=== PATIENT | female | born 1985 | race African-American/Black ===

== ENCOUNTER 2019-04-19 08:44 | Emergency (ER) | payer OTHER ==
[2019-04-19 09:27] LABS: BASOPHILS % (AUTO) 0.3 %; EOSINOPHILS % (AUTO) 0.3 %; HGB - HEMOGLOBIN 11.6 g/dL (12.0-16.0); LYMPHOCYTES # (AUTO) 2.7 10^3/uL (1.5-3.5); LYMPHOCYTES % (AUTO) 42.5 %; MEAN CORPUSCULAR HEMOGLOBIN 28.7 pg (27.0-31.0); MEAN CORPUSCULAR HGB CONC 33.9 g/dL (32.0-36.0); MEAN CORPUSCULAR VOLUME 84.7 fL (81.0-99.0); MEAN PLATELET VOLUME 9.4 fL (7.9-10.8); MONOCYTES # (AUTO) 0.4 10^3/uL (0.0-1.0); NEUTROPHILS # (AUTO) 3.2 10^3/uL (1.5-6.6); NEUTROPHILS % (AUTO) 50.6 %; PLT - PLATELET COUNT 294 10^3/uL (130-450); RED BLOOD COUNT 4.04 10^6/uL (4.20-5.40); RED CELL DISTRIBUTION WIDTH 13.6 % (12.0-15.0); WHITE BLOOD COUNT 6.4 x10^3/uL (4.8-10.8)
[2019-04-19] MEDS ORDERED: SODIUM CHLORIDE 0.9% 1,000 ML IV ONE (09:28)
--- NOTE | 2019-04-19 09:30 | ED Physician Documentation ---
PD HPI DYSPNEA - Stated complaint Stated Complaint: SOA/NUMB HANDS - Chief complaint Chief Complaint: Cardiac - History obtained from History obtained from: Patient - History of Present Illness Timing - onset: Today Timing - onset during: Light activity Timing - duration: Minutes Timing - details: Abrupt onset, Now resolved Inciting event(s): Other (just got out of the shower) Improved by: Rest Associated symptoms: Anxiety. 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 She has recently been into see her doctor about hair loss fatigue a rash on her body constipation and irregularity to her menstrual periods. She has pending blood work and is expecting follow-up at the end of this week. She is concerned about a thyroid disorder. She states that she was feeling otherwise well this morning and this episode took her by surprise she is come to the emergency department. Review of Systems Constitutional: reports: Fatigue, Sweats. denies: Fever, Chills Eyes: denies: Decreased vision Ears: denies: Ear pain Nose: denies: Rhinorrhea / runny nose, Congestion Throat: denies: Sore throat Cardiac: denies: Chest pain / pressure, Palpitations Respiratory: reports: Dyspnea. denies: Cough, Wheezing GI: reports: Abdominal Pain, Constipation. denies: Nausea, Vomiting, Diarrhea : denies: Dysuria, Frequency Skin: reports: Rash Musculoskeletal: denies: Neck pain, Back pain, Extremity pain Neurologic: reports: Generalized weakness. denies: Focal weakness, Numbness PD PAST MEDICAL HISTORY - Present Medications Home Medications: Ambulatory Orders Medication Instructions Recorded Confirmed Lorazepam [Ativan] 1 mg PO Q6HR PRN #15 tablet 04/19/19 - Allergies Allergies/Adverse Reactions: Allergies Allergy/AdvReac Type Severity Reaction Status Date / Time NSAIDS (Non-Steroidal Allergy Anaphylaxis Verified 04/19/19 08:53 Anti-Inflamma peanut Allergy Anaphylaxis Verified 04/19/19 08:53 PD ED PE NORMAL - Vitals Vital signs reviewed: Yes (tachy ) - General General: Alert and oriented X 3, No acute distress, Well developed/nourished - HEENT HEENT: Atraumatic, PERRL, EOMI, Ears normal, Pharynx benign, Dentition benign, Other (dry mucous membranes ) - Neck Neck: Supple, no meningeal sign, No bony TTP - Cardiac Cardiac: No murmur, Other (tachy to 110) - Respiratory Respiratory: No respiratory distress, Clear bilaterally - Abdomen Abdomen: Normal bowel sounds, Soft, Non tender, Non distended, No organomegaly - Back Back: No CVA TTP, No spinal TTP - Derm Derm: Normal color, Warm and dry, No rash - Extremities Extremities: No deformity, No edema - Neuro Neuro: Alert and oriented X 3, 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, No motor deficit, No sensory deficit, Normal speech Eye Opening: Spontaneous Motor: Obeys Commands Verbal: Oriented GCS Score: 15 - Psych Psych: Normal mood, Normal affect Results - Vitals Vitals: Vital Signs - 24 hr 04/19/19 04/19/19 04/19/19 08:49 09:30 10:00 Temperature 36.4 C L Heart Rate 128 H 81 99 Respiratory 16 18 17 Rate Blood Pressure 145/86 H 128/77 134/75 H O2 Saturation 100 99 99 04/19/19 04/19/19 04/19/19 10:30 11:00 11:18 Temperature Heart Rate 84 84 145 H Respiratory 20 19 Rate Blood Pressure 128/81 H 148/91 H O2 Saturation 100 100 04/19/19 04/19/19 04/19/19 11:30 12:00 12:09 Temperature Heart Rate 97 108 H 135 H Respiratory 18 18 Rate Blood Pressure 131/84 H 147/69 H O2 Saturation 100 98 04/19/19 04/19/19 04/19/19 12:30 13:00 13:30 Temperature Heart Rate 85 82 76 Respiratory 20 23 13 Rate Blood Pressure 137/74 H 136/84 H 123/92 H O2 Saturation 99 100 100 04/19/19 04/19/19 14:00 14:30 Temperature Heart Rate 89 90 Respiratory 18 12 Rate Blood Pressure 139/77 H 128/74 O2 Saturation 100 100 Oxygen O2 Source Room air - EKG (time done) 0902 Rate: Rate (enter#) (103) Rhythm: Sinus tachycardia, LAE Compare to prior EKG: Old EKG unavailable Computer interpretation: Agree with computer - Labs Labs: Laboratory Tests 04/19/19 04/19/19 04/19/19 09:10 09:11 09:11 WBC 6.4 RBC 4.04 L Hgb 11.6 L Hct 34.2 L MCV 84.7 MCH 28.7 MCHC 33.9 RDW 13.6 Plt Count 294 MPV 9.4 Neut # (Auto) 3.2 Lymph # (Auto) 2.7 [place] # (Auto) 0.4 Eos # (Auto) 0.0 Baso # (Auto) 0.0 Absolute Nucleated RBC 0.00 Nucleated RBC % 0.0 D-Dimer Sodium 137 Potassium 3.5 Chloride 103 Carbon Dioxide 22 Anion Gap 12.0 BUN 17 Creatinine 0.9 Estimated GFR (MDRD) 87 L Glucose 107 H Calcium 9.2 Total Bilirubin 0.5 AST 23 ALT 18 Alkaline Phosphatase 96 Troponin I High Sens Total Protein 8.4 H Albumin 4.2 Globulin 4.2 Albumin/Globulin Ratio 1.0 Lipase 29 TSH 1.95 Urine Color Urine Clarity Urine pH Ur Specific [place] Urine Protein Urine Glucose (UA) Urine Ketones Urine Occult Blood Urine Nitrite Urine Bilirubin Urine Urobilinogen Ur Leukocyte Esterase Ur Microscopic Review Urine Culture Comments Urine HCG, Qual 04/19/19 04/19/19 04/19/19 09:11 13:27 Unknown WBC RBC Hgb Hct MCV MCH MCHC RDW Plt Count MPV Neut # (Auto) Lymph # (Auto) [place] # (Auto) Eos # (Auto) Baso # (Auto) Absolute Nucleated RBC Nucleated RBC % D-Dimer 466.1 H Sodium Potassium Chloride Carbon Dioxide Anion Gap BUN Creatinine Estimated GFR (MDRD) Glucose Calcium Total Bilirubin AST ALT Alkaline Phosphatase Troponin I High Sens 3.7 Total Protein Albumin Globulin Albumin/Globulin Ratio Lipase TSH Urine Color YELLOW Urine Clarity CLEAR Urine pH 7.0 Ur Specific [place] 1.010 Urine Protein NEGATIVE Urine Glucose (UA) NEGATIVE Urine Ketones NEGATIVE Urine Occult Blood NEGATIVE Urine Nitrite NEGATIVE Urine Bilirubin NEGATIVE Urine Urobilinogen 0.2 (NORMAL) Ur Leukocyte Esterase NEGATIVE Ur Microscopic Review NOT INDICATED Urine Culture Comments NOT INDICATED Urine HCG, Qual NEGATIVE - Rads (name of study) chest Radiology: Prelim report reviewed (Impression: Normal single view chest.), EMP read indepedently, See rad report CT angio chest Radiology: Prelim report reviewed (Impression: Normal pulmonary CT angiogram. No pulmonary emboli. Asymmetric breast tissue being more prominent on the left than on the right. Clinical correlation suggested.), EMP read indepedently, See rad report Procedures - IVC sono (time) 0920 Bedside IVC sono: IVC measures (cm) (1.12), IVC collapsed c insp (cm) (complete), Dehydration (esta 1-2 liter deficit) PD MEDICAL DECISION MAKING - ED course Complexity details: reviewed old records, reviewed results, re-evaluated patient, considered differential, d/w patient, d/w family ED course: 33-year-old female with acute hyperventilation on arrival is tachycardic as well she is mildly volume depleted and her volume is fixed with IV saline this does not relieve her tachycardia. She has increased anxiety and tachycardia with hyperventilation and she develops hyperventilation syndrome with numbness to her lips fingertips toes and cramping her calves. She is administered Ativan and symptoms improved. When she initially had a tachycardia to 150 we did attempt to treat with adenosine which failed and we eventually gave the single dose of metoprolol and this was successful. In order to explain a persistent tachycardia I thought it important to rule out pulmonary embolism and her d-dimer was mildly elevated and a CT angios of the chest was obtained. This showed no evidence of pulmonary embolism but there is concern about a mass in the patient's left breast. On physical examination there is a palpable mass in the breast below the nipple and this is mildly tender. I discussed with the patient the need for a follow-up mammogram and she has an appointment with your primary care doctor in 3 days. I have offered to provide the patient with a limited supply of benzodiazepine and she will need follow-up counseling for anxiety panic attack and hyperventilation syndrome. Departure - Departure Disposition: 01 Home, Self Care Clinical Impression: Hyperventilation, Anxiety, Breast mass, left Condition: Stable Instructions: ED Stress React, ED Panic Attack, ED Hyperventilation Syndrome, ED Breast Mass Uncertain Cause Follow-Up: [facility] Garciaviv[facility] Steiner [Provider Group] Prescriptions: Lorazepam [Ativan] 1 mg PO Q6HR PRN #15 tablet PRN Reason: Anxiety Comments: Today your diagnostics were unremarkable with the exception of an incidental finding in your left breast. This will need a follow-up mammogram with your primary care doctor.
[2019-04-19 09:40] LABS: ALBUMIN 4.2 g/dL (3.2-5.5); BILIRUBIN,TOTAL 0.5 mg/dL (0.2-1.0); CALCIUM 9.2 mg/dL (8.5-10.3); CREATININE 0.9 mg/dL (0.4-1.0); TOTAL PROTEIN 8.4 g/dL (6.7-8.2)
--- NOTE | 2019-04-19 09:47 | XRAY Report ---
Reason: chest pain Procedure Date: 04/19/2019 Accession Number: [id number] / [id number] Procedure: XR - Chest 1 View X-Ray CPT Code: 72873 FULL RESULT: EXAM: CHEST RADIOGRAPHY EXAM DATE: 04/19/2019 09:36 AM. CLINICAL HISTORY: Chest pain. COMPARISON: None. TECHNIQUE: 1 view. FINDINGS: Lungs/Pleura: No focal opacities evident. No pleural effusion. No pneumothorax. Mediastinum: Within exam limitations, the cardiomediastinal contour is normal. Other: None. IMPRESSION: Normal single view chest. RADIA
[2019-04-19] MEDS ORDERED: ACETAMINOPHEN 325 MG TABLET PO STA (10:01)
[2019-04-19] MEDS ORDERED: ADENOSINE 6 MG/2 ML VIAL IVP STA (11:21)
[2019-04-19] MEDS ORDERED: ADENOSINE 6 MG/2 ML VIAL IVP ONE (11:31)
[2019-04-19] MEDS ORDERED: LORazepam 2 MG/ML VIAL ONE (11:36)
[2019-04-19] MEDS ORDERED: LORazepam 2 MG/ML VIAL IVP STA (11:38)
[2019-04-19] MEDS ORDERED: METOPROLOL 5 MG/5 ML VIAL IVP STA (12:08)
[2019-04-19] MEDS ORDERED: IOVERSOL 320 100 ML VIAL IVP ONE ×2 (13:11→16:35)
[2019-04-19 13:39] LABS: BILIRUBIN,URINE NEGATIVE (NEGATIVE); GLUCOSE, URINE (UA) NEGATIVE (NEGATIVE); KETONES,URINE (UA) NEGATIVE (NEGATIVE); LEUKOCYTE ESTERASE, URINE NEGATIVE (NEGATIVE); NITRITE,URINE NEGATIVE (NEGATIVE); OCCULT BLOOD,URINE NEGATIVE (NEGATIVE); PROTEIN,URINE NEGATIVE (NEGATIVE); UROBILINOGEN,URINE 0.2 (NORMAL) E.U./dL (NORMAL)
[2019-04-19 13:40] LABS: CLARITY,URINE CLEAR (CLEAR); HCG UR QUAL NEGATIVE
--- NOTE | 2019-04-19 14:32 | CT Report ---
Reason: PE study Procedure Date: 04/19/2019 Accession Number: [id number] / [id number] Procedure: CT - ANGIO CHEST W/WO CPT Code: FULL RESULT: EXAM: CT ANGIOGRAM CHEST EXAM DATE: 04/19/2019 02:00 PM. CLINICAL HISTORY: Chest pain COMPARISON: CHEST 1 VIEW 04/19/2019 9:21 AM. TECHNIQUE: Routine helical imaging was performed through the chest in the pulmonary arterial phase. IV Contrast: OPTI 320 80ML. Reconstructions: Coronal 3-D MIP reconstructions.Sagittal and coronal. In accordance with CT protocol optimization, one or more of the following dose reduction techniques were utilized for this exam: automated exposure control, adjustment of mA and/or KV based on patient size, or use of iterative reconstructive technique. FINDINGS: Pulmonary Arteries: Diagnostic quality: Adequate through the segmental arteries. No evidence for acute or chronic pulmonary emboli. RV/LV is within normal limits. There is no interventricular septal bowing. There is no reflux of contrast material in the IVC. Lungs/Pleura: 2 mm right upper lobe nodule 5/51 and 4 mm right lower lobe pleural-based nodule 5/60. No consolidation, other nodules, or edema. No effusions or pneumothorax. Mediastinum: No cardiac enlargement or adenopathy. Thoracic Aorta: Unremarkable. Upper Abdomen: Possible fatty infiltration of the liver. Other: Asymmetric breast tissue being more prominent on the left than on the right suggest clinical correlation. IMPRESSION: Normal pulmonary CT angiogram. No pulmonary emboli. Asymmetric breast tissue being more prominent on the left than on the right. Clinical correlation suggested. RADIA
[2019-04-19 15:16] VITALS: BP 123/75
== END 2019-04-19 15:28 | disposition home or self-care (01) ==
LOC: ED 08:44
DX: F45.8 Other somatoform disorders (principal); F41.9 Anxiety disorder, unspecified; E86.0 Dehydration; R00.0 Tachycardia, unspecified; N63.20 Unspecified lump in the left breast, unspecified quadrant
CPT/HCPCS: 36415; 71045; 71275; 81003; 81025; 83690; 84484; 85379; 93005; 96361; 96374; 96375; 99284; A9270; J0153; J2060; Q9967; 80053; 81001; 84443; 85025; 87086

== ENCOUNTER 2019-06-10 10:26 | Outpatient (CLI) | payer OTHER ==
--- NOTE | 2019-06-10 15:31 | Mammography Report ---
Reason: ABN CHEST CT, LT BREAST LUMP Procedure Date: 06/10/2019 Accession Number: [id number] / [id number] Procedure: JAYNE - Diagnostic Dig LT CPT Code: Final Report FULL RESULT: EXAM: Diagnostic Dig LT, Breast Unilateral Limited DATE: 06/10/2019 11:39 AM CLINICAL HISTORY: Follow-up abnormal chest CT 04/19/2019 showing asymmetric increased density left breast. COMPARISON: None available. TECHNIQUE: (L) - Left. CC and MLO views were obtained. PARENCHYMAL PATTERN: (There are scattered fibroglandular densities. FINDINGS: Slight increased density in the retroareolar right breast on the CC projection does not persist on the lateral projections. On the lateral projection there is a suggestion of an ovoid partially lucent retroareolar nodule measuring 3.6 x 2.3 cm. LEFT BREAST ULTRASOUND: TECHNIQUE: Real-time scanning of the left breast retroareolar region with me present and saved static images reviewed. FINDINGS: In the retroareolar left breast there is a mixed hyper and hypoechoic lobulated lesion with minimal vascularity measuring 3 x 2 x 0.8 cm. Findings suggest a hamartoma or fibroadenolipoma or fibroadenoma. IMPRESSION: Probably Benign. BI-RADS category 3. Suggest follow-up ultrasound in 3 months. RECOMMENDATION: (3MOS) - Recommend 3 month follow-up exam. Left breast ultrasound BI-RADS CATEGORY: (3) - Probably Benign. COMMENT: After today's studies were performed, the patient related that she had had a mammogram at the [facility] approximately 1 month ago. Images and a report from this exam are not available. Suggest correlation between these 2 studies, which may modify the follow-up recommendation. STANDARD QUALIFYING STATEMENTS: 1. This examination was not reviewed with the aid of Computer-Aided Detection (CAD). 2. A negative or benign imaging report should not preclude biopsy if clinically suspicious findings are present. 3. Dense breasts may obscure an underlying neoplasm. 4. This examination was reviewed without the aid of 3D breast imaging (tomosynthesis).
== END 2019-06-10 10:27 | disposition home or self-care (01) ==
LOC: DI 10:26
PROVIDERS: ATTEND Family Medicine
DX: R92.8 Other abnormal and inconclusive findings on diagnostic imaging of breast (principal)
CPT/HCPCS: 76642

== ENCOUNTER 2019-08-18 03:27 | Emergency (ER) | payer OTHER ==
[2019-08-18] MEDS ORDERED: LIDOCAINE VISCOUS 2% 15 ML UDC MM STA (04:17)
[2019-08-18] MEDS ORDERED: MAG HYDROX/AL HYDROX/SIMETH 30 ML UDC PO STA (04:17)
--- NOTE | 2019-08-18 04:18 | ED Physician Documentation ---
PD HPI ABD PAIN - Stated complaint Stated Complaint: ABD PX - Chief complaint Chief Complaint: Abd Pain - History obtained from History obtained from: Patient - History of Present Illness Timing - onset: Today Timing - duration: Hours Timing - details: Abrupt onset, Still present Quality: Cramping, Sharp, Pain Location: RUQ, Epigastric Radiation: Upper back Improved by: Other (leaning forward) Worsened by: Breathing, Palpation Associated symptoms: Nausea. No: Diarrhea, Constipation, Chest pain, Dizzy Similar symptoms before: Has not had sx before Recently seen: Emergency Dept - Additional information Additional information: 33-year-old female the history of anxiety has developed acute epigastric pain sh ortly after eating chili from [employer] on her way home from school. She states that pain is persisted and she is become very uncomfortable and is coming to the emergency department early in the morning. She has not had pain similar to this previously. Review of Systems Constitutional: denies: Fever Eyes: denies: Decreased vision Ears: denies: Ear pain Nose: denies: Rhinorrhea / runny nose, Congestion Throat: denies: Sore throat Cardiac: denies: Chest pain / pressure Respiratory: denies: Dyspnea, Cough GI: reports: Abdominal Pain, Nausea. denies: Vomiting, Constipation, Diarrhea : denies: Dysuria, Frequency PD PAST MEDICAL HISTORY - Past Medical History Neuro: Migraines - Past Surgical History Past Surgical History: Yes /METHODOLOGIST: section HEENT: Tonsil/Adenoidectomy - Present Medications Home Medications: Ambulatory Orders Medication Instructions Recorded Confirmed Lorazepam [Ativan] 1 mg PO Q6HR PRN #15 tablet 04/19/19 - Allergies Allergies/Adverse Reactions: Allergies Allergy/AdvReac Type Severity Reaction Status Date / Time NSAIDS (Non-Steroidal Allergy Anaphylaxis Verified 08/18/19 03:42 Anti-Inflamma peanut Allergy Anaphylaxis Verified 08/18/19 03:42 - Social History Does the pt smoke?: No Smoking Status: Never smoker Does the pt drink ETOH?: Yes Does the pt have substance abuse?: No - Immunizations Immunizations are current?: Yes PD ED PE NORMAL - Vitals Vital signs reviewed: Yes (normal ) - General General: Alert and oriented X 3, No acute distress, Well developed/nourished - HEENT HEENT: Atraumatic, PERRL, EOMI - Neck Neck: Supple, no meningeal sign, No bony TTP - Cardiac Cardiac: RRR, No murmur - Respiratory Respiratory: No respiratory distress, Clear bilaterally - Abdomen Abdomen: Soft, Other (epigastric and right upper quadrant tenderness without garding or rebound tenderness.) - Back Back: No CVA TTP, No spinal TTP - Derm Derm: Normal color, Warm and dry, No rash - Extremities Extremities: No deformity, No edema, No calf tenderness / cord - Neuro Neuro: Alert and oriented X 3, 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, No motor deficit, No sensory deficit, Normal speech Eye Opening: Spontaneous Motor: Obeys Commands Verbal: Oriented GCS Score: 15 - Psych Psych: Normal mood, Normal affect Results - Vitals Vitals: Oxygen O2 Source Room air - Labs Labs: Laboratory Tests 08/18/19 08/18/19 08/18/19 04:32 05:10 05:10 WBC 11.4 H RBC 4.05 L Hgb 11.5 L Hct 35.3 L MCV 87.2 MCH 28.4 MCHC 32.6 RDW 13.8 Plt Count 283 MPV 9.3 Neut # (Auto) 9.4 H Lymph # (Auto) 1.2 L [place] # (Auto) 0.7 Eos # (Auto) 0.0 Baso # (Auto) 0.0 Absolute Nucleated RBC 0.00 Nucleated RBC % 0.0 Sodium 136 Potassium 3.7 Chloride 104 Carbon Dioxide 23 Anion Gap 9.0 BUN 18 Creatinine 0.7 Estimated GFR (MDRD) 116 Glucose 105 H Calcium 8.8 Total Bilirubin 1.0 AST 324 H ALT 112 H Alkaline Phosphatase 171 H Total Protein 8.8 H Albumin 4.0 Globulin 4.8 H Albumin/Globulin Ratio 0.8 L Lipase 31 Urine Color YELLOW Urine Clarity SL. CLOUDY Urine pH 6.0 Ur Specific [place] >=1.030 H Urine Protein NEGATIVE Urine Glucose (UA) NEGATIVE Urine Ketones NEGATIVE Urine Occult Blood LARGE H Urine Nitrite NEGATIVE Urine Bilirubin NEGATIVE Urine Urobilinogen 1 (NORMAL) Ur Leukocyte Esterase NEGATIVE Urine RBC TNTC H Urine WBC 0-3 Ur Squamous Epith Cells FEW Squamous Urine Bacteria Rare Ur Microscopic Review INDICATED Urine Culture Comments NOT INDICATED Urine HCG, Qual NEGATIVE - Rads (name of study) abd ltd Radiology: Prelim report reviewed (Impression: No cholelithiasis or cholecystitis. Hepatomegaly and increased echogenicity of the liver may reflect hepatic steatosis. 6 mm right renal lesion, which is too small to accurately characterize but statistically likely to reflect a cyst.), EMP read indepedently, See rad report Procedures - Bedside sono Bedside sono by EMP: With bedside ultrasound the right upper quadrant is imaged there is appear to be a solitary large stone in the gallbladder which appears fairly contracted. It is sonographically tender there is no pericholecystic fluid. PD MEDICAL DECISION MAKING - ED course Complexity details: reviewed old records, reviewed results, re-evaluated patient, considered differential, d/w patient ED course: 33-year-old female with postprandial epigastric pain and a history of 3 weeks of postprandial bloating and pain has no relief with use of a GI cocktail and she has a negative gallbladder ultrasound. She does have some elevation in her LFTs without specific explanation. She has no elevation of the bilirubin but elevation mild in the alkaline phosphatase and the AST and ALT. Lipase is normal. She denies any alcohol use and she is allergic to nonsteroidals. Her pattern of elevation is consistent with excessive alcohol consumption and she is confronted with this and makes poor eye contact but sticks with her story that she does not drink much. I have recommended she discontinue alcohol consumption and follow up with her primary for a repeat of her liver functions. Departure - Departure Disposition: 01 Home, Self Care Clinical Impression: Epigastric abdominal pain of unknown etiology, Liver disease due to alcohol Condition: Stable Instructions: ED Abdominal Pain Unkn Cause, ED Alcohol Abuse Follow-Up: [facility] Steiner [Provider Group] Comments: Today our blood work demonstrates a patter of elevation in your liver functions consistent with excessive alcohol consumption. The recommendation is to discontinue all alcohol and follow up with your doctor for repeat blood work within 1 week. In the mean time a regular dose of medication to reduce acid in your stomach such as pepcid or nexium is recommended and may help with your pain. Your CT results are below. You should have the ovarian cyst reimaged in 4-6 weeks with your doctor. IMPRESSION: 1. Small hiatal hernia. 2. Mildly fatty liver. 3. Incidental 3 cm left paraovarian cyst. Possible mild left hydrosalpinx. Discharge Date/Time: 08/18/19 09:19
[2019-08-18 04:58] LABS: BILIRUBIN,URINE NEGATIVE (NEGATIVE); GLUCOSE, URINE (UA) NEGATIVE (NEGATIVE); KETONES,URINE (UA) NEGATIVE (NEGATIVE); LEUKOCYTE ESTERASE, URINE NEGATIVE (NEGATIVE); NITRITE,URINE NEGATIVE (NEGATIVE); OCCULT BLOOD,URINE LARGE (NEGATIVE); PROTEIN,URINE NEGATIVE (NEGATIVE); UROBILINOGEN,URINE 1 (NORMAL) E.U./dL (NORMAL)
[2019-08-18 05:12] LABS: BACTERIA,URINE Rare /HPF (None Seen); CLARITY,URINE SL. CLOUDY (CLEAR); HCG UR QUAL NEGATIVE; RBC,URINE TNTC /HPF (0-5); SQUAMOUS EPITHELIAL CELL,UR FEW Squamous (<= Few)
[2019-08-18] MEDS ORDERED: ONDANSETRON 4 MG/2 ML VIAL IVP STA (05:12)
[2019-08-18] MEDS ORDERED: HYDROmorphone 1 MG/ML CARPUJECT IVP STA (05:12)
[2019-08-18] MEDS ORDERED: SODIUM CHLORIDE 0.9% 1,000 ML IV ONE (05:13)
[2019-08-18 05:21] LABS: BASOPHILS % (AUTO) 0.2 %; HGB - HEMOGLOBIN 11.5 g/dL (12.0-16.0); LYMPHOCYTES # (AUTO) 1.2 10^3/uL (1.5-3.5); LYMPHOCYTES % (AUTO) 10.6 %; MEAN CORPUSCULAR HEMOGLOBIN 28.4 pg (27.0-31.0); MEAN CORPUSCULAR HGB CONC 32.6 g/dL (32.0-36.0); MEAN CORPUSCULAR VOLUME 87.2 fL (81.0-99.0); MEAN PLATELET VOLUME 9.3 fL (7.9-10.8); MONOCYTES # (AUTO) 0.7 10^3/uL (0.0-1.0); MONOCYTES % (AUTO) 6.3 %; NEUTROPHILS # (AUTO) 9.4 10^3/uL (1.5-6.6); NEUTROPHILS % (AUTO) 82.5 %; PLT - PLATELET COUNT 283 10^3/uL (130-450); RED BLOOD COUNT 4.05 10^6/uL (4.20-5.40); RED CELL DISTRIBUTION WIDTH 13.8 % (12.0-15.0); WHITE BLOOD COUNT 11.4 x10^3/uL (4.8-10.8)
[2019-08-18 05:34] LABS: ALBUMIN/GLOBULIN RATIO 0.8 (1.0-2.2); CALCIUM 8.8 mg/dL (8.5-10.3); CREATININE 0.7 mg/dL (0.4-1.0); TOTAL PROTEIN 8.8 g/dL (6.7-8.2)
--- NOTE | 2019-08-18 05:55 | Ultrasound Report ---
Reason: RUQ and epigastric pain Procedure Date: 08/18/2019 Accession Number: [id number] / [id number] Procedure: US - Abdomen Limited CPT Code: Final Report FULL RESULT: EXAM: ABDOMEN ULTRASOUND LIMITED, RUQ EXAM DATE: 08/18/2019 05:37 AM. CLINICAL HISTORY: RUQ and epigastric pain. COMPARISON: None. TECHNIQUE: Real-time scanning was performed with static images obtained. FINDINGS: Liver: Increased in size and increase in echo echotexture. 17.7 cm. Main portal vein flow: Hepatopetal. Gallbladder: Normal. No stones, wall thickening, or sonographic Meyer's sign. Biliary System: CBD measures 5 mm. No intrahepatic or extrahepatic ductal dilatation. The distal common bile duct is obscured by overlying bowel gas. Right kidney: 6 mm anechoic lesion at the inferior pole. No hydronephrosis. IMPRESSION: No cholelithiasis or cholecystitis. Hepatomegaly and increased echogenicity of the liver may reflect hepatic steatosis. 6 mm right renal lesion, which is too small to accurately characterize but statistically likely to reflect a cyst. RADIA
[2019-08-18] MEDS ORDERED: IOVERSOL 320 100 ML VIAL IVP ONE ×2 (06:32→07:03)
--- NOTE | 2019-08-18 08:21 | CT Report ---
Reason: epigastric pain Procedure Date: 08/18/2019 Accession Number: [id number] / [id number] Procedure: CT - Abdomen/Pelvis W CPT Code: Final Report FULL RESULT: EXAM: CT ABDOMEN AND PELVIS EXAM DATE: 08/18/2019 07:04 AM. CLINICAL HISTORY: Epigastric pain. COMPARISONS: Ultrasound 08/18/2019. TECHNIQUE: Routine helical CT imaging was performed through the abdomen and pelvis. IV contrast: OPTI 320 100ML. Enteric contrast: No. Reconstructions: Coronal and sagittal. In accordance with CT protocol optimization, one or more of the following dose reduction techniques were utilized for this exam: automated exposure control, adjustment of mA and/or KV based on patient size, or use of iterative reconstructive technique. FINDINGS: Lung Bases: Unremarkable. Small hiatal hernia. Liver: Minimally fatty. No discrete hepatic lesions. Gallbladder/Bile Ducts: Unremarkable. Spleen: Normal. Pancreas: Normal. Adrenal Glands: Normal. Kidneys: Tiny bilateral (subcentimeter) simple cyst. No hydronephrosis. No perinephric fluid collections. Peritoneal Cavity/Bowel: Moderate retained stool in the ascending and rectosigmoid colon. No dilated segments of small neurologic bowel. No free fluid, free air or adenopathy. No masses or acute inflammatory process. The appendix is not visualized and presumably surgically absent. Pelvic Organs: There is a 3 cm left paraovarian cyst. A fluid distended tubular structure measuring 1.7 cm in diameter adjacent to the left ovary may represent mild hydrosalpinx. Theuterus and adnexa are otherwise unremarkable by CT criteria. Vasculature: No aneurysms or other significant abnormality. Bones: No significant abnormality. IMPRESSION: 1. Small hiatal hernia. 2. Mildly fatty liver. 3. Incidental 3 cm left paraovarian cyst. Possible mild left hydrosalpinx. RADIA
[2019-08-18 09:20] VITALS: BP 120/78
== END 2019-08-18 09:19 | disposition home or self-care (01) ==
LOC: ED 03:27
DX: R10.13 Epigastric pain (principal); R74.0 Nonspecific elevation of levels of transaminase and lactic acid dehydrogenase [LDH]; R74.8 Abnormal levels of other serum enzymes; K70.9 Alcoholic liver disease, unspecified; F10.988 Alcohol use, unspecified with other alcohol-induced disorder; K76.0 Fatty (change of) liver, not elsewhere classified; F41.9 Anxiety disorder, unspecified; K44.9 Diaphragmatic hernia without obstruction or gangrene; Z79.899 Other long term (current) drug therapy; Z88.6 Allergy status to analgesic agent
CPT/HCPCS: 36415; 74177; 76705; 80053; 81001; 81025; 83690; 85025; 96361; 96374; 96375; 99284; A9270; J1170; Q9967; 81003; 87086

== ENCOUNTER 2019-08-24 10:48 | Outpatient (CLI) | payer OTHER ==
[2019-08-24] MEDS ORDERED: SINCALIDE 5 MCG VIAL ONE (11:57)
[2019-08-24] MEDS ORDERED: SODIUM CHLORIDE 0.9% IV ONE (13:42)
[2019-08-24] MEDS ORDERED: SINCALIDE IV ONE (13:42)
--- NOTE | 2019-08-24 14:08 | Nuclear Medicine Report ---
Reason: RUQ ABD PAIN Procedure Date: 08/24/2019 Accession Number: [id number] / [id number] Procedure: NM - Hepatobiliary HIDA w/ Rx CPT Code: Final Report FULL RESULT: EXAM: HEPATOBILIARY SCAN WITH CCK/KINEVAC ADMINISTRATION EXAM DATE: 08/24/2019 01:37 PM. CLINICAL HISTORY: RUQ ABD PAIN. COMPARISON: ABDOMEN LIMITED 08/18/2019 4:50 AM ABDOMEN/PELVIS W/ 08/18/2019 7:02 AM. TECHNIQUE: Following the intravenous administration of 5 mCi of Tc99m Mebrofenin, a hepatobiliary scan was done centered on the liver and gallbladder in multiple sequential images and projections. Following the intravenous administration of 1.9 mcg of CCK/ Kinevac over the course of approximately 60 minutes, dynamic imaging was done and the gallbladder ejection fraction was calculated. FINDINGS: Normal extraction of tracer from the blood pool indicating normal hepatocellular function. The liver size and shape is grossly within normal limits. There is activity visualized within the bile ducts, gallbladder, and small bowel during the first hour. With CCK administration, the gallbladder demonstrates an effective contraction. The gallbladder ejection fraction is calculated to be 93%, well above the lower limit of normal of 38% for a 60-minute injection. The patient did report symptoms after CCK administration. No evidence of enteric reflux into the stomach. No significant collection of tracer remaining in the common bile duct by the end of the study. IMPRESSION: 1. Patent cystic duct. 2. Patent common bile duct. 3. Negative for acute or chronic cholecystitis. 4. No enterogastric bile reflux. 5. Gallbladder ejection fraction of 93%. [facility]
== END 2019-08-24 10:49 | disposition home or self-care (01) ==
LOC: DI 10:48
PROVIDERS: ATTEND Family Medicine
DX: R10.11 Right upper quadrant pain (principal)
CPT/HCPCS: 78227; J7040

== ENCOUNTER 2019-09-22 08:35 | Day surgery (SDC) | payer OTHER ==
[2019-09-22] MEDS ORDERED: LACTATED RINGERS 1,000 ML IV ONE ×2 (10:05→12:20)
[2019-09-22 10:29] LABS: HCG UR QUAL NEGATIVE
[2019-09-22] MEDS ORDERED: LIDO GARGLE 30 ML BOTTLE ONE (11:50)
[2019-09-22] MEDS ORDERED: LIDO GARGLE 30 ML BOTTLE PO ONE (11:55)
[2019-09-22] MEDS ORDERED: MIDAZOLAM 2 MG/2 ML VIAL IVP ONE (12:01)
[2019-09-22] MEDS ORDERED: fentaNYL 100 MCG/2 ML VIAL IVP ONE (12:01)
[2019-09-22 14:12] VITALS: BP 94/68
== END 2019-09-22 08:36 | disposition home or self-care (01) ==
LOC: SDS 08:35
PROVIDERS: ATTEND Surgery
PROC: 0DB68ZX Excision of Stomach, Via Natural or Artificial Opening Endoscopic, Diagnostic (ICD-10-PCS; principal; 2019-09-22 10:30)
DX: K29.70 Gastritis, unspecified, without bleeding (principal)
CPT/HCPCS: 43239; 81025; 87081; A9270; J7120

== ENCOUNTER 2019-10-19 08:00 | Outpatient (CLI) | payer OTHER | END 2019-10-19 23:59 | disposition home or self-care (01) | LOC: LAB.R 08:00 | PROVIDERS: ATTEND Surgery | DX: R10.13 Epigastric pain (principal); R19.7 Diarrhea, unspecified; R10.11 Right upper quadrant pain | CPT/HCPCS: 81599; 83630; 87045; 87046; 87177; 87209; 87493 ==

== ENCOUNTER 2019-10-19 12:08 | Outpatient (CLI) | payer OTHER ==
--- NOTE | 2019-10-19 16:37 | Ultrasound Report ---
Reason: ABN MAMMO - 3 MONTH F U Procedure Date: 10/19/2019 Accession Number: [id number] / [id number] Procedure: US - Breast Unilateral Limited CPT Code: Final Report FULL RESULT: EXAM: Breast Unilateral Limited DATE: 10/19/2019 12:54 PM CLINICAL HISTORY: ABN MAMMO - 3 MONTH F U COMPARISON: Ultrasound 08/18/2019 as well as ultrasound from outside institution dated 04/27/2019. TECHNIQUE: Targeted ultrasound was performed of the left breast in the area of clinical concern at 11 o'clock and 2 cm distance from the nipple. Color Doppler was employed as appropriate. FINDINGS: The previously seen a wider than tall well circumscribed gently lobulated generally hypoechoic lesion with heterogeneous hyper echoic internal striations is redemonstrated and does not appear significantly changed. Overall dimensions on today's exam I 1.9 x 3.4 x 0.8 cm. The probably benign lesion is slightly curvilinear and careful real-time interrogation by the radiologist reveals that these measurements are likely unchanged compared to previous studies. No suspicious mass or architectural distortion is identified. IMPRESSION: Probable benign findings RECOMMENDATION: Recommend diagnostic left breast ultrasound in 6 months. BIRADS CATEGORY 3 [facility]
== END 2019-10-19 12:09 | disposition home or self-care (01) ==
LOC: DI 12:08
PROVIDERS: ATTEND Family Medicine
DX: R92.2 Inconclusive mammogram (principal); R10.13 Epigastric pain; R19.7 Diarrhea, unspecified; R10.11 Right upper quadrant pain
CPT/HCPCS: 76642; 81599; 83630; 87045; 87046; 87177; 87209; 87493